=== PATIENT | male | born 1955 | race Caucasian/White ===

== ENCOUNTER 2017-03-29 08:06 | Emergency (ER) | payer OTHER ==
[~2017-03-29] VITALS: Ht 188 cm; Wt 104.3 kg
--- NOTE | 2017-03-29 09:53 | NUR ---
Patient discharged to home in stable conditon. Written and verbal after care instructions given to patient. Patient verbalizes understanding of instructions. Patient left ER with steady gait.
[2017-03-29] MEDS ORDERED: predniSONE 20 MG TABLET PO ONE (10:00)
[2017-03-29] MEDS ORDERED: predniSONE 10 MG TABLET ONE (10:06)
[2017-03-29] MEDS ORDERED: predniSONE 50 MG TABLET ONE (10:06)
== END 2017-03-29 09:54 | disposition home or self-care (01) ==
LOC: ER 08:06
DX: S86.812A Strain of other muscle(s) and tendon(s) at lower leg level, left leg, initial encounter (principal); X58.XXXA Exposure to other specified factors, initial encounter; Y93.89 Activity, other specified; Y92.89 Other specified places as the place of occurrence of the external cause; Y99.8 Other external cause status; F17.210 Nicotine dependence, cigarettes, uncomplicated; Z96.651 Presence of right artificial knee joint
CPT/HCPCS: 73560; A4663; J7512